=== PATIENT | female | born 1935 | race Caucasian/White ===

== ENCOUNTER 2023-05-29 15:43 | Inpatient (IN) | payer MEDICARE, BC ==
[2023-05-29] MEDS ORDERED: Ipratropium/Albuterol 3 ML NEB ONE (17:27)
[2023-05-29 17:32] LABS: #Eosinphils 0.1 10x3/uL (0.0-0.5); #Monocytes 1.3 10x3/uL (0.0-1.1); #Neutrophils 12.4 10x3/uL (1.5-8.4); %Basophils 0.2 % (0.0-2.0); %Eosinophils 0.6 % (0.0-6.0); %Lymphocytes 4.8 % (18.0-47.0); %Monocytes 8.8 % (0.0-10.0); %Neutrophils 84.9 % (40.0-75.0); Hemoglobin 10.3 g/dL (12.0-15.5); Mean Corpuscular HGB CONC 34.9 g/dL (32.0-36.0); Mean Corpuscular Hemoglobin 32.6 pg (27.0-33.0); Mean Corpuscular Volume 93.4 fl (81.6-98.3); Mean Platelet Volume 9.6 fl (7.4-10.4); Platelet Count 300 10x3/uL (150-450); RBC Distribution Width 13.5 % (11.5-14.5); Red Blood Cell (RBC) Count 3.16 10x6/uL (3.90-5.03); White Blood Cell (WBC) Count 14.6 10x3/uL (3.5-10.5)
[2023-05-29 17:45] LABS: ALT (SGPT) 33 U/L (8-55); AST (SGOT) 26 U/L (5-34); Albumin 3.8 g/dL (3.4-4.8); Alkaline Phosphatase 58 U/L (40-110); Anion Gap 17 mmol/L (10-20); BUN (Urea Nitrogen) 17 mg/dL (9.8-20.1); Bilirubin, Total 0.5 mg/dL (0.2-1.2); Calc. Creatinine Clearance 0 mL/min (70-130); Calcium 7.9 mg/dL (7.8-10.44); Carbon Dioxide 19 mmol/L (23-31); Chloride 96 mmol/L (98-107); Estimated GFR 59; Globulin 2.6 g/dL (2.4-3.5); Glucose 130 mg/dL (83-110); Potassium 4.3 mmol/L (3.5-5.1); Protein, Total 6.4 g/dL (5.8-8.1); Sodium 128 mmol/L (136-145)
[2023-05-29 18:04] LABS: CKMB 3.8 ng/mL (0-6.6)
[2023-05-29] MEDS ORDERED: Nitroglycerin 2% Ointment 1 INCH/1 GM Packet ONE (19:56)
[2023-05-29] MEDS ORDERED: Furosemide 40 MG/4 ML VIAL ONE (19:56)
[2023-05-29] MEDS ORDERED: Acetaminophen 325 MG TAB PO PRN (20:01)
[2023-05-29] MEDS ORDERED: Ondansetron PF 4 MG/2 ML Vial IVP PRN (20:01)
[2023-05-29] MEDS ORDERED: Calcium Carbonate 500 MG ChewTAB PO PRN (20:01)
[2023-05-29] MEDS ORDERED: Senokot S 8.6-50 MG TAB PO PRN (20:01)
[2023-05-29] MEDS ORDERED: Guaifenesin DM 100-10/5 ML UDCUP PO SCH (20:30)
[2023-05-29 22:10] VITALS: BMI 25.8
[2023-05-29] MEDS ORDERED: guaiFENesin/Codeine Phosphate 100 mg/10 mg 5 ml UD Cup PO SCH (22:15)
[2023-05-29] MEDS ORDERED: Carvedilol 12.5 MG TAB PO SCH (22:15)
[2023-05-29] MEDS ORDERED: Benzonatate 100 MG CAP PO SCH (22:15)
[2023-05-29] MEDS: Dexamethasone 4 mg/ml Vial SLOW IVP SCH (22:21)
[2023-05-29] MEDS: cefTRIAXone\\ROCEPHIN 2 GM in Sodium Chloride 0.9% 100 ML IVPB SCH (22:21)
[2023-05-29 23:22] LABS: CKMB 3.4 ng/mL (0-6.6)
[2023-05-29 23:31] LABS: Legionella Urinary Ag Negative (Negative)
[2023-05-29] MEDS: Azithromycin 500 MG in Sodium Chloride 0.9% 250 ML 250 ML IVPB SCH (23:38)
[2023-05-29] MEDS: Guaifenesin DM 100-10/5 ML UDCUP PO PRN (23:40)
[2023-05-29 23:43] LABS: Strep pneumo Urine Ag NEGATIVE (NEGATIVE)
[2023-05-30] MEDS: Guaifenesin DM 100-10/5 ML UDCUP PO PRN ×4 (04:28→20:43)
[2023-05-30 05:21] LABS: Hemoglobin 9.9 g/dL (12.0-15.5); Mean Corpuscular HGB CONC 34.5 g/dL (32.0-36.0); Mean Corpuscular Hemoglobin 32.6 pg (27.0-33.0); Mean Corpuscular Volume 94.4 fl (81.6-98.3); Mean Platelet Volume 9.6 fl (7.4-10.4); Platelet Count 291 10x3/uL (150-450); RBC Distribution Width 13.7 % (11.5-14.5); Red Blood Cell (RBC) Count 3.04 10x6/uL (3.90-5.03); White Blood Cell (WBC) Count 13.2 10x3/uL (3.5-10.5)
[2023-05-30 05:23] LABS: MDiff Complete? YES
[2023-05-30 05:26] LABS: Anion Gap 12 mmol/L (10-20); BUN (Urea Nitrogen) 20 mg/dL (9.8-20.1); Calc. Creatinine Clearance 45 mL/min (70-130); Carbon Dioxide 26 mmol/L (23-31); Chloride 98 mmol/L (98-107); Estimated GFR 63; Glucose 148 mg/dL (83-110); Potassium 4.2 mmol/L (3.5-5.1); Sodium 132 mmol/L (136-145)
[2023-05-30 05:50] LABS: CKMB 3.2 ng/mL (0-6.6)
[2023-05-30 05:51] LABS: Band 3 % (5-11); Lymphocytes 6 % (21-51); Monocytes 3 % (0-10); Neutrophil 88 % (42-75); Platelet Adequacy Comment Appears Adequate
[2023-05-30] MEDS: Levothyroxine Sodium 50 MCG TAB PO SCH (06:13)
[2023-05-30] MEDS: Furosemide 40 MG/4 ML VIAL SLOW IVP SCH (09:48)
[2023-05-30] MEDS: Atorvastatin Calcium 40 MG TAB PO SCH (09:50)
[2023-05-30] MEDS: Benzonatate 100 MG CAP PO SCH ×3 (09:50→20:43)
[2023-05-30] MEDS: Aspirin 81 mg Enteric Coated Tablet PO SCH (09:50)
[2023-05-30] MEDS: Zinc Sulfate 220 MG CAP PO SCH (09:50)
[2023-05-30] MEDS: Clopidogrel Bisulfate 75 MG TAB PO SCH (09:51)
[2023-05-30] MEDS: Escitalopram Oxalate 10 mg Tablet PO SCH (09:51)
[2023-05-30] MEDS: Ascorbic Acid 500 mg Chewable Tablet PO SCH (09:51)
[2023-05-30] MEDS: Carvedilol 12.5 MG TAB PO SCH ×2 (09:52→16:26)
[2023-05-30] MEDS ORDERED: Furosemide 40 MG/4 ML VIAL SLOW IVP SCH (15:45)
[2023-05-30] MEDS: Azithromycin 500 MG in Sodium Chloride 0.9% 250 ML 250 ML IVPB SCH (23:08)
[2023-05-30] MEDS: cefTRIAXone\\ROCEPHIN 2 GM in Sodium Chloride 0.9% 100 ML IVPB SCH (23:08)
[2023-05-30] MEDS: Dexamethasone 4 mg/ml Vial SLOW IVP SCH (23:09)
[2023-05-31] MEDS: Levothyroxine Sodium 50 MCG TAB PO SCH (05:44)
[2023-05-31] MEDS: Guaifenesin DM 100-10/5 ML UDCUP PO PRN (05:44)
[2023-05-31] MEDS: Benzonatate 100 MG CAP PO SCH (10:46)
[2023-05-31] MEDS: Ascorbic Acid 500 mg Chewable Tablet PO SCH (10:46)
[2023-05-31] MEDS: Zinc Sulfate 220 MG CAP PO SCH (10:46)
[2023-05-31] MEDS: Furosemide 40 MG/4 ML VIAL SLOW IVP SCH (10:46)
[2023-05-31] MEDS: Carvedilol 12.5 MG TAB PO SCH (10:46)
[2023-05-31] MEDS: Atorvastatin Calcium 40 MG TAB PO SCH (10:47)
[2023-05-31] MEDS: Escitalopram Oxalate 10 mg Tablet PO SCH (10:47)
[2023-05-31] MEDS: Clopidogrel Bisulfate 75 MG TAB PO SCH (10:47)
[2023-05-31] MEDS: Aspirin 81 mg Enteric Coated Tablet PO SCH (10:47)
[2023-05-31 13:04] VITALS: BP 113/74; TEMP 97.4
== END 2023-05-31 15:08 | disposition home or self-care (01) | DRG 177 ==
LOC: CSHERS 15:43 → CSHTELE 22:08
PROVIDERS: ADMIT Student in an Organized Health Care Education/Training Program; ATTEND Hospitalist
DX: U07.1 COVID-19 (principal); I50.23 Acute on chronic systolic (congestive) heart failure; J12.82 Pneumonia due to coronavirus disease 2019; J96.01 Acute respiratory failure with hypoxia; E87.1 Hypo-osmolality and hyponatremia; I47.1 Supraventricular tachycardia; I11.0 Hypertensive heart disease with heart failure; E78.5 Hyperlipidemia, unspecified; E03.9 Hypothyroidism, unspecified; I25.10 Atherosclerotic heart disease of native coronary artery without angina pectoris; R77.8 Other specified abnormalities of plasma proteins; I25.2 Old myocardial infarction; F32.A Depression, unspecified; Z96.642 Presence of left artificial hip joint; Z91.048 Other nonmedicinal substance allergy status; Z79.82 Long term (current) use of aspirin; Z79.899 Other long term (current) drug therapy; Z95.5 Presence of coronary angioplasty implant and graft; Z90.710 Acquired absence of both cervix and uterus; Z98.890 Other specified postprocedural states
CPT/HCPCS: 36415; 71045; 80048; 80053; 82553; 83880; 84145; 84484; 85025; 85379; 87449; 87899; 93005; 93306; 94640; 94760; 96361; 96374; J0456; J0696; J1100; J1650; J1940; J3490; J7050; J7620